=== PATIENT | male | born 1955 | race African-American/Black ===

== ENCOUNTER 2018-07-04 23:27 | Inpatient (IN) | payer BC, MEDICAID ==
[~2018-07-04] VITALS: Ht 182.9 cm; Wt 95.5 kg
[~2018-07-04 23:27] MED LIST: AMLO5TAB16 PO; ASPI-10 PO; ATOR-2; BUPR150T14 PO; DOCU100C40 PO; HYDR-3972 PO; HYDR25TA4 PO; LEG CRAMP RELIEF; LISI40TA4; METO100T14 PO; SILD100T PO
[2018-07-05 01:03] LABS: CLARITY,URINE CLEAR (Clear); COLOR,URINE YELLOW (Yellow); GLUCOSE, URINE NEGATIVE (Neg); KETONES,URINE NEGATIVE (Neg); LEUKOCYTE ESTERASE ,URINE NEGATIVE (Neg); NITRITES, URINE NEGATIVE (Neg); OCCULT BLOOD,URINE NEGATIVE (Neg); PROTEIN,URINE NEGATIVE (Neg); UROBILINOGEN,URINE 0.2 E.U/dL (0.2-1.0)
[2018-07-05 01:09] LABS: UA COLLECTION TYPE URINAL
[2018-07-05 01:19] LABS: URINE AMPHETAMINE SCREEN NEGATIVE (Neg); URINE BARBITUATE SCREEN NEGATIVE (Neg); URINE BENZODIAZEPINES SCREEN NEGATIVE (Neg); URINE CANNABINOID SCREEN POSITIVE (Neg); URINE COCAINE SCREEN NEGATIVE (Neg); URINE METHADONE SCREEN NEGATIVE (Neg); URINE OPIATE SCREEN NEGATIVE (Neg); URINE PHENCYCLIDINE SCREEN NEGATIVE (Neg)
[2018-07-05 01:19] LABS: ALANINE AMINOTRANSFERASE 27 U/L (12-78); ALBUMIN 3.5 G/DL (3.4-5.0); ALBUMIN/GLOBULIN RATIO 0.9 (1.1-1.5); ALKALINE PHOSPHATASE 82 IU/L (46-116); ANION GAP 6 (8-16); ASPARTATE AMINO TRANSFERASE 23 U/L (10-37); BILIRUBIN,TOTAL 0.2 MG/DL (0.1-1.0); BLOOD UREA NITROGEN 10 MG/DL (7-18); BUN/CREATININE RATIO 9.3 (5.4-32.0); CALCIUM 8.8 MG/DL (8.5-10.1); CHLORIDE 104 MMOL/L (99-107); CREATININE 1.08 MG/DL (0.60-1.10); GLUCOSE 89 MG/DL (70-104); INR 1.1 INR; PARTIAL THROMBOPLASTIN TIME 29 SECONDS (22-32); POTASSIUM 3.3 MMOL/L (3.5-5.1); PROTHROMBIN TIME 11.2 SECONDS (9.0-12.0); SODIUM 140 MMOL/L (135-145); TOTAL CARBON DIOXIDE 30.4 MMOL/L (24-32); TOTAL PROTEIN 7.4 G/DL (6.4-8.2); eGFR 84 ML/MIN
[2018-07-05 01:27] LABS: MAGNESIUM 2.2 MG/DL (1.5-2.4)
[2018-07-05] MEDS ORDERED: aspirin 325mg tablet, delayed-release (Ecotrin) PO ONE (01:35)
[2018-07-05] MEDS ORDERED: potassium 10mEq/100ml NS w/LIDOcaine (10mg/bag) IV ONE (01:45)
[2018-07-05] MEDS ORDERED: magnesium 1gm/100ml D5W IVPB 100 ML IV SCH (01:45)
[2018-07-05] MEDS ORDERED: normal saline 1000ml 1,000 ML IV SCH (01:49)
[2018-07-05] MEDS ORDERED: diphenhydrAMINE 25mg capsule PO PRN (01:50)
[2018-07-05] MEDS ORDERED: magnesium hydroxide 30ml (MOM) UD suspension PO PRN (01:50)
[2018-07-05] MEDS ORDERED: potassium Cl 40MEQ/NS 500ml 500 ML IV PRN ×2 (01:50)
[2018-07-05] MEDS ORDERED: mag hydrox/Alum hydrox/simeth 30ml oral suspension PO PRN (01:50)
[2018-07-05] MEDS ORDERED: bisacodyl 10mg suppository rectal RC PRN (01:50)
[2018-07-05] MEDS ORDERED: diphenhydrAMINE 50 mg/ml inj IV PRN (01:50)
[2018-07-05] MEDS ORDERED: potassium Cl 20 mEq SR tablet PO PRN (01:50)
[2018-07-05] MEDS ORDERED: ondansetron/PF 4mg/2ml inj IV PRN (01:50)
[2018-07-05] MEDS ORDERED: metoclopramide 5 mg/ml inj IV PRN (01:50)
[2018-07-05 01:56] LABS: BASOPHILS # (AUTO) 0.1 X10'3 (0-0.2); BASOPHILS % (AUTO) 0.7 % (0-1); EOSINOPHILS # (AUTO) 0.4 X10'3 (0-0.9); EOSINOPHILS % (AUTO) 3.8 % (0-6); HEMATOCRIT 43.7 % (42.0-52.0); HEMOGLOBIN 14.1 g/dl (14.0-17.9); LYMPHOCYTES % (AUTO) 38.5 % (21-51); MEAN CORPUSCULAR HEMOGLOBIN 28.6 PG (27.0-31.0); MEAN CORPUSCULAR HGB CONC 32.2 % (33.0-36.5); MEAN CORPUSCULAR VOLUME 88.8 FL (78-98); MEAN PLATELET VOLUME 9.3 FL (7.4-10.4); MONOCYTES # (AUTO) 0.9 X10'3 (0-0.9); MONOCYTES % (AUTO) 8.7 % (2-12); NEUTROPHILS % (AUTO) 48.3 % (42-75); PLATELET COUNT 262 X10'3 (140-440); RED BLOOD COUNT 4.92 X10'6 (4.70-6.10); RED CELL DISTRIBUTION WIDTH 14.8 % (11.5-14.5); WHITE BLOOD COUNT 10.4 X10'3 (4.5-11.0)
[2018-07-05] MEDS ORDERED: magnesium 2GM in 50ml NS 50 ML IV ONE (02:15)
[2018-07-05] MEDS: potassium Cl 20 mEq SR tablet PO PRN ×2 (02:23→07:36)
[2018-07-05 05:07] LABS: HEMOGLOBIN A1C 6.2 % (4.5-6.2)
[2018-07-05 05:11] LABS: PHOSPHORUS 3.4 MG/DL (2.3-4.5)
[2018-07-05] MEDS: docusate sod 100mg capsule PO SCH ×2 (07:33→22:28)
[2018-07-05] MEDS: pantoprazole 40mg Tablet.DR PO SCH (07:34)
[2018-07-05] MEDS ORDERED: atorvastatin 20mg tablet PO SCH (08:00)
[2018-07-05] MEDS: K and/or MAG REPLACEMENT MC SCH (08:22)
[2018-07-05] MEDS ORDERED: aspirin 81mg tab.chew PO SCH (08:30)
[2018-07-05] MEDS ORDERED: magnesium 4gm in 100ml NS 100 ML IV PRN (09:50)
[2018-07-05] MEDS ORDERED: magnesium Cl slow-release 64mg tablet PO PRN (09:50)
[2018-07-05 10:00] VITALS: BP 121/89
[2018-07-05] MEDS ORDERED: hydrALAZINE 20mg/ml inj. IV ONE (10:00)
[2018-07-05] MEDS ORDERED: hydrALAZINE 20mg/ml inj. IV PRN (10:00)
[2018-07-05] MEDS: amLODIPine 5mg tablet PO SCH (13:12)
[2018-07-05] MEDS: lisinopril 20mg tablet PO SCH (13:15)
[2018-07-05] MEDS: metoprolol tartrate 50mg tablet PO SCH ×2 (13:16→22:29)
[2018-07-05] MEDS: buPROPion SR 150mg tablet PO SCH ×2 (13:16→22:29)
[2018-07-05] MEDS: HYDROchlorothiazide 25mg tablet PO SCH (13:16)
[2018-07-05 15:00] VITALS: BP 145/90
[2018-07-05 18:10] VITALS: BP 143/99
[2018-07-05] MEDS ORDERED: temazepam 15mg capsule PO PRN (21:00)
[2018-07-05 22:00] VITALS: BP 134/100
[2018-07-06 02:00] VITALS: BP 144/98
[2018-07-06 06:00] VITALS: BP 156/94
[2018-07-06 07:22] LABS: BASOPHILS # (AUTO) 0.1 X10'3 (0-0.2); BASOPHILS % (AUTO) 0.6 % (0-1); EOSINOPHILS # (AUTO) 0.5 X10'3 (0-0.9); EOSINOPHILS % (AUTO) 5.6 % (0-6); HEMATOCRIT 46.8 % (42.0-52.0); LYMPHOCYTES # (AUTO) 3.1 X10'3 (1.1-4.8); MEAN CORPUSCULAR HEMOGLOBIN 28.3 PG (27.0-31.0); MEAN CORPUSCULAR HGB CONC 32.2 % (33.0-36.5); MEAN CORPUSCULAR VOLUME 87.9 FL (78-98); MEAN PLATELET VOLUME 8.5 FL (7.4-10.4); MONOCYTES # (AUTO) 1.1 X10'3 (0-0.9); MONOCYTES % (AUTO) 11.8 % (2-12); NEUTROPHILS # (AUTO) 4.2 X10'3 (1.8-7.7); PLATELET COUNT 260 X10'3 (140-440); RED BLOOD COUNT 5.32 X10'6 (4.70-6.10); RED CELL DISTRIBUTION WIDTH 14.7 % (11.5-14.5)
[2018-07-06 07:54] LABS: ALANINE AMINOTRANSFERASE 29 U/L (12-78); ALBUMIN 3.3 G/DL (3.4-5.0); ALBUMIN/GLOBULIN RATIO 0.9 (1.1-1.5); ALKALINE PHOSPHATASE 68 IU/L (46-116); ANION GAP 8 (8-16); ASPARTATE AMINO TRANSFERASE 19 U/L (10-37); BILIRUBIN,TOTAL 0.3 MG/DL (0.1-1.0); BLOOD UREA NITROGEN 12 MG/DL (7-18); BUN/CREATININE RATIO 10.8 (5.4-32.0); CALCIUM 8.9 MG/DL (8.5-10.1); CHLORIDE 103 MMOL/L (99-107); CREATININE 1.11 MG/DL (0.60-1.10); GLUCOSE 88 MG/DL (70-104); PHOSPHORUS 3.7 MG/DL (2.3-4.5); POTASSIUM 3.5 MMOL/L (3.5-5.1); SODIUM 140 MMOL/L (135-145); eGFR 82 ML/MIN
[2018-07-06] MEDS ORDERED: atorvastatin 20mg tablet PO SCH (08:00)
[2018-07-06] MEDS: K and/or MAG REPLACEMENT MC SCH (08:00)
[2018-07-06] MEDS: metoprolol tartrate 50mg tablet PO SCH (08:00)
[2018-07-06] MEDS ORDERED: aspirin 325mg tablet PO SCH (08:30)
[2018-07-06] MEDS: pantoprazole 40mg Tablet.DR PO SCH (08:51)
[2018-07-06] MEDS: docusate sod 100mg capsule PO SCH (08:51)
[2018-07-06] MEDS: HYDROchlorothiazide 25mg tablet PO SCH (08:51)
[2018-07-06] MEDS: amLODIPine 5mg tablet PO SCH (08:53)
[2018-07-06] MEDS: lisinopril 20mg tablet PO SCH (08:53)
[2018-07-06] MEDS: buPROPion SR 150mg tablet PO SCH (08:53)
[2018-07-06] MEDS ORDERED: NOR5T PO (10:00)
[2018-07-06] MEDS ORDERED: PANT40TA4 PO (10:00)
[2018-07-06] MEDS ORDERED: ASPI-611 PO (10:00)
[2018-07-06] MEDS ORDERED: HCTZ25T PO (10:00)
[2018-07-06] MEDS ORDERED: ATOR20TA66 PO (10:00)
[2018-07-06] MEDS ORDERED: LISI-600 PO (10:00)
[2018-07-06] MEDS ORDERED: METO50TA16 PO (10:00)
[2018-07-06 12:00] VITALS: BP 141/99
== END 2018-07-06 13:00 | disposition home or self-care (01) | DRG 305 ==
LOC: ER 07-05 00:29 → ED HOLD 07-05 01:49 → ORTHO 4S 07-05 10:00
PROVIDERS: ADMIT Family Medicine; ATTEND Family Medicine
DX: I16.1 Hypertensive emergency (principal); R47.01 Aphasia; E78.00 Pure hypercholesterolemia, unspecified; E87.6 Hypokalemia; F17.210 Nicotine dependence, cigarettes, uncomplicated; I10 Essential (primary) hypertension; I25.10 Atherosclerotic heart disease of native coronary artery without angina pectoris; I25.2 Old myocardial infarction; Z82.3 Family history of stroke; Z79.82 Long term (current) use of aspirin; Z79.899 Other long term (current) drug therapy; Z88.0 Allergy status to penicillin; Z88.6 Allergy status to analgesic agent; Z91.14 Patient's other noncompliance with medication regimen; Z91.19 Patient's noncompliance with other medical treatment and regimen; Z95.1 Presence of aortocoronary bypass graft; Z86.73 Personal history of transient ischemic attack (TIA), and cerebral infarction without residual deficits
CPT/HCPCS: 36415; 70450; 70551; 71045; 80053; 80305; 81003; 83036; 83735; 83880; 84100; 84443; 84484; 85025; 85610; 85651; 85730; 87070; 93005; 93306; 93880; 99285; G0378; J0360; J7030